=== PATIENT | male | born 1985 | race Caucasian/White ===

== ENCOUNTER 2018-12-29 03:57 | Emergency (ER) | payer SELFPAY ==
[~2018-12-29] VITALS: Ht 182.9 cm; Wt 68.2 kg
[2018-12-29 04:00] VITALS: Ht 182.9 cm; Wt 68.2 kg
[2018-12-29] MEDS ORDERED: DIPHENHYDRAMINE 50 MG INJ IM ONE (04:30)
[2018-12-29] MEDS ORDERED: HALOPERIDOL 5 MG INJ IM ONE (04:30)
[2018-12-29] MEDS ORDERED: LORAZEPAM 2 MG INJ IM ONE (04:30)
[2018-12-29] MEDS ORDERED: DIVALPROEX (EC) 500 MG TAB PO SCH (21:00)
[2018-12-29] MEDS ORDERED: OLANZAPINE (ODT) 5 MG TAB ODT SCH (21:00)
[2018-12-29] MEDS ORDERED: HALOPERIDOL 5 MG INJ ONE (23:37)
[2018-12-29] MEDS ORDERED: DIPHENHYDRAMINE 50 MG INJ ONE (23:37)
[2018-12-30] MEDS ORDERED: DIPHENHYDRAMINE 50 MG INJ IM ONE
[2018-12-30] MEDS ORDERED: LORAZEPAM 2 MG INJ IM ONE
[2018-12-30] MEDS ORDERED: HALOPERIDOL 5 MG INJ IM ONE
[2018-12-30 01:55] VITALS: BP 108/59; PULSE 78; RESP 16
[2018-12-30] MEDS ORDERED: DIVALPROEX (EC) 500 MG TAB PO SCH (09:00)
[2018-12-30] MEDS ORDERED: DIVALPROEX SPRINKLE 125 MG CAP PO SCH (21:00)
== END 2018-12-30 02:00 ==
LOC: E/R 03:57
DX: F29 Unspecified psychosis not due to a substance or known physiological condition (principal); F15.10 Other stimulant abuse, uncomplicated; R40.2142 Coma scale, eyes open, spontaneous, at arrival to emergency department; R40.2252 Coma scale, best verbal response, oriented, at arrival to emergency department; R40.2362 Coma scale, best motor response, obeys commands, at arrival to emergency department
CPT/HCPCS: 36415; 80053; 80307; 81001; 85025; 96372; 99285; J1200; J1630; J2060